=== PATIENT | female | born 1985 | race Caucasian/White ===

== ENCOUNTER 2016-10-18 09:56 | Observation (INO) | payer MEDICAID ==
[~2016-10-18] VITALS: Ht 162.6 cm; Wt 80.0 kg
[2016-10-18 12:20] LABS: HEMATOCRIT 37.7 % (34.6-47.8); HEMOGLOBIN 12.6 g/dL (11.7-16.4); WHITE BLOOD COUNT 9.5 x10^3/uL (3.4-10)
[2016-10-18 12:33] LABS: BLOOD UREA NITROGEN 11 mg/dL (7-18)
[2016-10-18 12:41] LABS: ACETAMINOPHEN < 2 mcg/mL (10-30)
[2016-10-18] MEDS ORDERED: ZIPRASIDONE 20MG CAPSULE ONE (13:19)
[2016-10-18] MEDS ORDERED: ZIPRASIDONE 20MG CAPSULE PO ONE (13:30)
[2016-10-18 14:02] LABS: DAU SCREEN DISCLAIMER
[2016-10-18 18:23] VITALS: BP 119/75
[2016-10-18] MEDS: ZIPRASIDONE 20MG CAPSULE PO SCH (18:31)
[2016-10-18 19:28] VITALS: BP 98/63
[2016-10-18] MEDS ORDERED: NICOTINE 14MG/24 HR PATCH.TD24 ONE (19:30)
[2016-10-18] MEDS: POTASSIUM CHLORIDE 20 MEQ TAB.ER.PRT PO SCH ×2 (20:29→22:34)
[2016-10-18] MEDS ORDERED: NICOTINE 14MG/24 HR PATCH.TD24 TD SCH (21:00)
[2016-10-19 06:20] VITALS: BP 110/61
[2016-10-19] MEDS: ZIPRASIDONE 20MG CAPSULE PO SCH ×2 (06:22→16:54)
[2016-10-19] MEDS: ACETAMINOPHEN 325 MG TABLET PO PRN ×2 (06:22→15:41)
[2016-10-19 06:31] LABS: BLOOD UREA NITROGEN 11 mg/dL (7-18)
[2016-10-19] MEDS ORDERED: POTASSIUM CHLORIDE 20 MEQ TAB.ER.PRT PO ONE (08:00)
[2016-10-19] MEDS ORDERED: NICOTINE 14MG/24 HR PATCH.TD24 TD SCH (09:00)
[2016-10-19 09:37] VITALS: BP 133/89
[2016-10-19] MEDS ORDERED: NICOTINE 14MG/24 HR PATCH.TD24 ONE (19:40)
[2016-10-19] MEDS: NICOTINE 14MG/24 HR PATCH.TD24 TD SCH (20:32)
[2016-10-19 20:38] VITALS: BP 115/70
[2016-10-20] MEDS: ACETAMINOPHEN 325 MG TABLET PO PRN ×3 (04:01→21:40)
[2016-10-20 07:45] VITALS: BP 131/83
[2016-10-20] MEDS: ZIPRASIDONE 20MG CAPSULE PO SCH ×2 (08:00→21:22)
[2016-10-20 21:20] VITALS: BP 124/75
[2016-10-20] MEDS: NICOTINE 14MG/24 HR PATCH.TD24 TD SCH (21:27)
[2016-10-21 07:20] VITALS: BP 134/78
[2016-10-21] MEDS: NICOTINE 14MG/24 HR PATCH.TD24 TD SCH (08:31)
[2016-10-21] MEDS: ACETAMINOPHEN 325 MG TABLET PO PRN ×2 (08:35→16:14)
[2016-10-21] MEDS ORDERED: ZIPRASIDONE 20MG CAPSULE PO SCH (09:00)
[2016-10-21] MEDS ORDERED: LORazepam 1MG TABLET ONE (13:58)
[2016-10-21] MEDS ORDERED: ZIPRASIDONE 40MG CAPSULE PO SCH (18:00)
[2016-10-21 20:15] VITALS: BP 114/63
[2016-10-21] MEDS: ORAJEL 7GM TUBE MM PRN (20:45)
[2016-10-22] MEDS ORDERED: ZIPRASIDONE 20MG CAPSULE PO SCH (08:00)
[2016-10-22] MEDS: ACETAMINOPHEN 325 MG TABLET PO PRN ×3 (08:40→17:20)
[2016-10-22 08:44] VITALS: BP 120/84
[2016-10-22] MEDS: NICOTINE 14MG/24 HR PATCH.TD24 TD SCH ×2 (09:00→16:29)
[2016-10-22] MEDS ORDERED: ARIPIPRAZOLE 5 MG TABLET PO ONE (12:30)
[2016-10-22 20:00] VITALS: BP 117/74
[2016-10-22] MEDS: IBUPROFEN 200 MG TABLET PO PRN (20:06)
[2016-10-22] MEDS: ORAJEL 7GM TUBE MM PRN (20:06)
[2016-10-23 07:37] VITALS: BP 108/72
[2016-10-23] MEDS: ARIPIPRAZOLE 10 MG TABLET PO SCH (08:36)
[2016-10-23] MEDS: ORAJEL 7GM TUBE MM PRN (08:42)
[2016-10-23] MEDS: ACETAMINOPHEN 325 MG TABLET PO PRN ×2 (08:42→16:48)
[2016-10-23] MEDS: IBUPROFEN 200 MG TABLET PO PRN ×2 (12:26→19:18)
[2016-10-23 19:16] VITALS: BP 124/84
[2016-10-24 07:21] VITALS: BP 117/76
[2016-10-24] MEDS: NICOTINE 14MG/24 HR PATCH.TD24 TD SCH (08:22)
[2016-10-24] MEDS: ARIPIPRAZOLE 10 MG TABLET PO SCH (08:22)
[2016-10-24] MEDS: ACETAMINOPHEN 325 MG TABLET PO PRN ×2 (08:30→19:37)
[2016-10-24] MEDS: IBUPROFEN 200 MG TABLET PO PRN (16:04)
[2016-10-24 19:14] VITALS: BP 117/78
[2016-10-25 07:37] VITALS: BP 118/78
[2016-10-25] MEDS: NICOTINE 14MG/24 HR PATCH.TD24 TD SCH (08:16)
[2016-10-25] MEDS ORDERED: ARIPIPRAZOLE 10 MG TABLET PO SCH (09:00)
== END 2016-10-25 09:41 ==
LOC: ED 10:31 → EDIP 13:30 → 3E 18:03
PROVIDERS: ADMIT Internal Medicine; ATTEND Internal Medicine
DX: F23 Brief psychotic disorder (principal); E87.6 Hypokalemia; F12.90 Cannabis use, unspecified, uncomplicated; F15.20 Other stimulant dependence, uncomplicated; F17.200 Nicotine dependence, unspecified, uncomplicated; F22 Delusional disorders; F32.9 Major depressive disorder, single episode, unspecified; G35 Multiple sclerosis; J45.909 Unspecified asthma, uncomplicated; F10.10 Alcohol abuse, uncomplicated; Z81.8 Family history of other mental and behavioral disorders; Z90.49 Acquired absence of other specified parts of digestive tract
CPT/HCPCS: 36415; 70450; 80048; 80307; 80329; 82040; 84443; 84703; 85025; 99285; G0378; Q0177; G0480

== ENCOUNTER 2017-02-16 13:48 | Observation (INO) | payer MEDICAID ==
[~2017-02-16] VITALS: Ht 160 cm; Wt 85.4 kg
[2017-02-16 15:23] LABS: HEMOGLOBIN 13.4 g/dL (11.7-16.4); WHITE BLOOD COUNT 7.2 x10^3/uL (3.4-10)
[2017-02-16 15:36] LABS: BLOOD UREA NITROGEN 6 mg/dL (7-18)
[2017-02-16 15:42] LABS: ASPARTATE AMINO TRANSFERASE 19 U/L (15-37)
[2017-02-16 15:46] LABS: ACETAMINOPHEN < 2 mcg/mL (10-30)
[2017-02-16 16:21] LABS: DAU SCREEN DISCLAIMER
[2017-02-16] MEDS ORDERED: LORazepam 1MG TABLET ONE (16:43)
[2017-02-16] MEDS ORDERED: LORazepam 1MG TABLET PO ONE (17:00)
[2017-02-16] MEDS ORDERED: POLYETHYLENE GLYCOL 17 GM PACKET PO PRN (18:30)
[2017-02-16] MEDS ORDERED: ONDANSETRON ODT 4 MG PO PRN (18:30)
[2017-02-16] MEDS ORDERED: BISACODYL 10 MG SUPP PR PRN (18:30)
[2017-02-16 19:50] VITALS: BP 133/84
[2017-02-16] MEDS: NICOTINE 7 MG/24 HR PATCH.TD24 TD SCH (20:07)
[2017-02-16] MEDS: ACETAMINOPHEN 325 MG TABLET PO PRN (20:07)
[2017-02-16] MEDS: DIPHENHYDRAMINE 50 MG CAPSULE PO PRN (20:07)
[2017-02-16] MEDS: ZIPRASIDONE 20MG CAPSULE PO SCH (20:07)
[2017-02-17 08:00] VITALS: BP 124/71
[2017-02-17] MEDS: ZIPRASIDONE 20MG CAPSULE PO SCH ×2 (08:14→21:06)
[2017-02-17] MEDS: SENNA/DOCUSATE TABLET PO SCH (08:16)
[2017-02-17] MEDS: LORazepam 1MG TABLET PO PRN (12:49)
[2017-02-17 19:53] VITALS: BP 97/61
[2017-02-17 21:02] VITALS: BP 114/70
[2017-02-17] MEDS: ACETAMINOPHEN 325 MG TABLET PO PRN (21:06)
[2017-02-17] MEDS: NICOTINE 7 MG/24 HR PATCH.TD24 TD SCH (21:07)
[2017-02-18 08:24] VITALS: BP 134/86
[2017-02-18] MEDS: ZIPRASIDONE 20MG CAPSULE PO SCH ×2 (08:33→20:21)
[2017-02-18] MEDS: LORazepam 1MG TABLET PO PRN ×2 (08:41→16:48)
[2017-02-18] MEDS: ACETAMINOPHEN 325 MG TABLET PO PRN ×2 (08:42→16:47)
[2017-02-18] MEDS: SENNA/DOCUSATE TABLET PO SCH (08:43)
[2017-02-18] MEDS: ENOXAPARIN 40 MG/0.4 ML SQ SCH (16:50)
[2017-02-18 19:30] VITALS: BP 157/86
[2017-02-18] MEDS: DIPHENHYDRAMINE 50 MG CAPSULE PO PRN (19:45)
[2017-02-18] MEDS: NICOTINE 7 MG/24 HR PATCH.TD24 TD SCH (20:24)
[2017-02-19 00:25] VITALS: BP 130/84
[2017-02-19] MEDS: ACETAMINOPHEN 325 MG TABLET PO PRN ×2 (00:27→12:31)
[2017-02-19] MEDS: LORazepam 1MG TABLET PO PRN ×3 (00:27→16:34)
[2017-02-19] MEDS: ZIPRASIDONE 20MG CAPSULE PO SCH ×2 (08:42→20:22)
[2017-02-19] MEDS: SENNA/DOCUSATE TABLET PO SCH (08:44)
[2017-02-19 08:45] VITALS: BP 126/79
[2017-02-19] MEDS: IBUPROFEN 200 MG TABLET PO PRN (16:34)
[2017-02-19] MEDS: DIPHENHYDRAMINE 50 MG CAPSULE PO PRN (16:34)
[2017-02-19] MEDS: ENOXAPARIN 40 MG/0.4 ML SQ SCH (16:37)
[2017-02-19 19:24] VITALS: BP 120/70
[2017-02-19] MEDS: NICOTINE 7 MG/24 HR PATCH.TD24 TD SCH (20:23)
[2017-02-20 08:00] VITALS: BP 127/78
[2017-02-20] MEDS: LORazepam 1MG TABLET PO PRN (08:20)
[2017-02-20] MEDS: ZIPRASIDONE 20MG CAPSULE PO SCH (08:20)
[2017-02-20] MEDS: IBUPROFEN 200 MG TABLET PO PRN (08:20)
[2017-02-20] MEDS: SENNA/DOCUSATE TABLET PO SCH (08:21)
== END 2017-02-20 13:20 | disposition home or self-care (01) ==
LOC: ED 17:16 → EDIP 18:32 → 3E 19:35
PROVIDERS: ADMIT Family Medicine; ATTEND Family Medicine
DX: F23 Brief psychotic disorder (principal); F20.9 Schizophrenia, unspecified; J45.909 Unspecified asthma, uncomplicated; F12.90 Cannabis use, unspecified, uncomplicated; F15.90 Other stimulant use, unspecified, uncomplicated; F17.200 Nicotine dependence, unspecified, uncomplicated; M79.671 Pain in right foot; Z90.01 Acquired absence of eye
CPT/HCPCS: 36415; 73630; 80053; 80307; 80329; 84703; 85025; 99285; G0378; G0479; G0480

== ENCOUNTER 2017-10-05 23:12 | Observation (INO) | payer MEDICAID, OTHER ==
[~2017-10-05] VITALS: Ht 170.2 cm; Wt 105.0 kg
[~2017-10-05 23:12] MED LIST: ARIP10TA33 PO
[2017-10-05] MEDS ORDERED: ZIPRASIDONE 20MG CAPSULE ONE (23:43)
[2017-10-05] MEDS: ZIPRASIDONE 20MG CAPSULE PO SCH (23:46)
[2017-10-05 23:54] LABS: BASOPHILS # (AUTO) 0.03 x10^3/uL (0-0.1); BASOPHILS % (AUTO) 0 % (0-1); EOSINOPHILS # (AUTO) 0.06 x10^3/uL (0-0.4); EOSINOPHILS % (AUTO) 1 % (1-7); LYMPHOCYTES % (AUTO) 23 % (22-44); MD NO; MEAN CORPUSCULAR HEMOGLOBIN 31.9 pg (27.0-34.8); MEAN CORPUSCULAR HGB CONC 34.2 g/dL (32.4-35.8); MEAN CORPUSCULAR VOLUME 93.3 fL (80-100); MEAN PLATELET VOLUME 8.2 fL (7.4-10.4); MONOCYTES # (AUTO) 0.43 x10^3/uL (0.2-0.8); MONOCYTES % (AUTO) 4 % (2-9); NEUTROPHILS # (AUTO) 7.69 x10^3/uL (1.8-6.8); NEUTROPHILS % (AUTO) 72 % (42-75); PLATELET COUNT 361 x10^3/uL (130-400); RED BLOOD COUNT 4.05 x10^6/uL (3.82-5.3); RED CELL DISTRIBUTION WIDTH 13.7 % (9.6-15.2)
[2017-10-06 00:02] LABS: AMPHETAMINE SCREEN, URINE Positive (Negative); BARBITURATE SCREEN, URINE Negative (Negative); BENZODIAZEPINE SCREEN, URINE Positive (Negative); CANNABINOID SCREEN, URINE Negative (Negative); COCAINE SCREEN, URINE Negative (Negative); METHADONE SCREEN, URINE Negative (Negative); OPIATE SCREEN, URINE Negative (Negative)
[2017-10-06 00:06] LABS: ALBUMIN 3.7 g/dL (3.4-5.0); ANION GAP 8 mmol/L (5-15); CALCIUM 8.6 mg/dL (8.5-10.1); CHLORIDE 111 mmol/L (98-107); CREATININE 0.67 mg/dL (0.55-1.02)
[2017-10-06 00:07] LABS: SALICYLATE LEVEL < 1.7 mg/dL (2.8-20.0)
[2017-10-06 00:11] LABS: ACETAMINOPHEN < 2 mcg/mL (10-30)
[2017-10-06] MEDS ORDERED: ONDANSETRON ODT 4 MG PO PRN (04:00)
[2017-10-06] MEDS ORDERED: TRAZ50TA18 PO (04:11)
[2017-10-06 04:27] VITALS: BP 114/62
[2017-10-06 08:17] VITALS: BP 118/66
[2017-10-06] MEDS: PALIPERIDONE 3 MG TAB.ER.24 PO SCH (14:10)
[2017-10-06] MEDS: LORazepam 1MG TABLET PO PRN ×3 (14:10→22:05)
[2017-10-06] MEDS: ACETAMINOPHEN 325 MG TABLET PO PRN ×2 (16:50→22:04)
[2017-10-06 19:36] VITALS: BP 103/66
[2017-10-07 07:55] VITALS: BP 121/85
[2017-10-07] MEDS: PALIPERIDONE 3 MG TAB.ER.24 PO SCH (08:59)
[2017-10-07] MEDS: ACETAMINOPHEN 325 MG TABLET PO PRN (09:09)
[2017-10-07] MEDS: LORazepam 1MG TABLET PO PRN (11:42)
[2017-10-07] MEDS: NICOTINE 7 MG/24 HR PATCH.TD24 TD SCH (16:09)
[2017-10-07] MEDS: ZIPRASIDONE 20MG CAPSULE PO SCH (17:18)
[2017-10-07 19:23] VITALS: BP 123/81
[2017-10-08 09:21] VITALS: BP 135/85
[2017-10-08] MEDS: PALIPERIDONE 3 MG TAB.ER.24 PO SCH (09:27)
[2017-10-08] MEDS: ACETAMINOPHEN 325 MG TABLET PO PRN (13:23)
[2017-10-08] MEDS: LORazepam 1MG TABLET PO PRN (13:23)
[2017-10-08] MEDS ORDERED: LORATADINE 10 MG TABLET PO PRN (13:30)
[2017-10-08] MEDS ORDERED: SODIUM CHLORIDE NASAL SPRAY 45ML BOTTLE NAS PRN (13:30)
[2017-10-08] MEDS: NICOTINE 7 MG/24 HR PATCH.TD24 TD SCH (15:23)
[2017-10-08 20:04] VITALS: BP 134/87
[2017-10-09] MEDS: PALIPERIDONE 3 MG TAB.ER.24 PO SCH (08:38)
[2017-10-09 08:40] VITALS: BP_SYST 117; BP_SYST 137; BP_DIAS 102; BP_DIAS 76
[2017-10-09] MEDS: LORazepam 1MG TABLET PO PRN ×2 (09:38→14:41)
[2017-10-10] MEDS ORDERED: PALIPERIDONE 3 MG TAB.ER.24 PO SCH (09:00)
== END 2017-10-09 14:46 ==
LOC: ED 23:17 → MERGE 10-06 01:21 → EDIP 10-06 01:21 → 2N 10-06 04:18
PROVIDERS: ADMIT Hospitalist; ATTEND Hospitalist
DX: F23 Brief psychotic disorder (principal); F14.159 Cocaine abuse with cocaine-induced psychotic disorder, unspecified; F15.159 Other stimulant abuse with stimulant-induced psychotic disorder, unspecified; F20.9 Schizophrenia, unspecified; F32.9 Major depressive disorder, single episode, unspecified; E86.0 Dehydration; F41.9 Anxiety disorder, unspecified
CPT/HCPCS: 36415; 80048; 80307; 80329; 82040; 84703; 85025; 99285; G0378; G0480

== ENCOUNTER 2018-01-10 05:52 | Emergency (ER) | payer MEDICAID, OTHER ==
[~2018-01-10] VITALS: Ht 160 cm; Wt 88.0 kg
[~2018-01-10 05:52] MED LIST changes: +TRAZ-136 PO
[2018-01-10 05:55] VITALS: BP 104/66
== END 2018-01-10 06:31 | disposition home or self-care (01) ==
LOC: ED 06:25
DX: F19.94 Other psychoactive substance use, unspecified with psychoactive substance-induced mood disorder (principal); F15.10 Other stimulant abuse, uncomplicated; F29 Unspecified psychosis not due to a substance or known physiological condition; F17.200 Nicotine dependence, unspecified, uncomplicated; Z59.0 Homelessness
CPT/HCPCS: 99283

== ENCOUNTER 2018-10-15 09:59 | Emergency (ER) | payer MEDICAID ==
[~2018-10-15] VITALS: Ht 160 cm; Wt 83.0 kg
[~2018-10-15 09:59] MED LIST changes: -TRAZ-136 PO; +TRAZ50TA66 PO
[2018-10-15] MEDS ORDERED: ZIPRASIDONE 20 MG INJ IM ONE ×2 (10:24→10:30)
[2018-10-15] MEDS ORDERED: LORazepam 2 MG/ML, 1ML IM ONE (10:30)
[2018-10-15 10:34] LABS: BASOPHILS # (AUTO) 0.07 x10^3/uL (0-0.1); BASOPHILS % (AUTO) 1 % (0-1); EOSINOPHILS # (AUTO) 0.15 x10^3/uL (0-0.4); EOSINOPHILS % (AUTO) 1 % (1-7); LYMPHOCYTES # (AUTO) 2.83 x10^3/uL (1-3.4); LYMPHOCYTES % (AUTO) 23 % (22-44); MD NO; MEAN CORPUSCULAR HEMOGLOBIN 30.5 pg (27.0-34.8); MEAN CORPUSCULAR HGB CONC 33.3 g/dL (32.4-35.8); MEAN CORPUSCULAR VOLUME 91.6 fL (80-100); MEAN PLATELET VOLUME 7.6 fL (7.4-10.4); MONOCYTES # (AUTO) 0.55 x10^3/uL (0.2-0.8); MONOCYTES % (AUTO) 5 % (2-9); NEUTROPHILS # (AUTO) 8.76 x10^3/uL (1.8-6.8); NEUTROPHILS % (AUTO) 71 % (42-75); PLATELET COUNT 418 x10^3/uL (130-400); RED BLOOD COUNT 4.15 x10^6/uL (3.82-5.3); RED CELL DISTRIBUTION WIDTH 13.6 % (9.6-15.2)
[2018-10-15 10:45] LABS: ALANINE AMINOTRANSFERASE 38 U/L (12-78); ALBUMIN 3.8 g/dL (3.4-5.0); ANION GAP 7 mmol/L (5-15); CALCIUM 8.7 mg/dL (8.5-10.1); CHLORIDE 108 mmol/L (98-107); SALICYLATE LEVEL 1.9 mg/dL (2.8-20.0)
--- NOTE | 2018-10-15 10:49 | NUR ---
LATE ENTRY DUE TO PATIENT CARE: FIRST CONTACT WITH PATIENT: PATIENT STATING "THEY ARE TRYING TO GET ME" PATIENT REPORTS SI WITH NO PLAN. PATIENT HAS PAST ATTEMPT TRYING TO CUT WRISTS PER PATIENT. PATIENT AMB WITH STEADY GAIT TO BATHROOM, UA COLLECTED AND SENT TO LAB. PATIENT ANXIOUS, AMBULATING UP ER HALLWAY TO NURSES DESK AND IN OTHER PATIENT'S ROOMS, ATTEMPTED MULTIPLE TIME TO REDIRECT PATIENT BACK TO ROOM WITH NO SUCCESS. GEODON ORDERED BY ERP AND ADMINISTERED PER MAY. SECURITY CALLED, 2 POINT RESTRAINTS APPLIED (RT HAND, LT FOOT) AT 1032, CMS INTACT. PATIENT PROVIDED WATER PER REQUEST. PATIENT NOW RESTING QUIETLY IN [facility]. NADN. AWAITING FURTHER ORDERS.
[2018-10-15 10:51] LABS: ALKALINE PHOSPHATASE 109 U/L (45-117); BILIRUBIN,TOTAL 0.3 mg/dL (0.2-1.0); CREATININE 0.63 mg/dL (0.55-1.02); TOTAL PROTEIN 8.2 g/dL (6.4-8.2)
--- NOTE | 2018-10-15 10:52 | NUR ---
ALL PERSONAL ITEMS PLACED IN 1 BAG AND IN LOCKED STORAGE, ALL SAFETY MEASURES IN PLACE, SITTER REQUESTED.
[2018-10-15 11:00] LABS: MICROSCOPIC AUTO
[2018-10-15 11:02] LABS: CULTURE INDICATED? YES
[2018-10-15 11:08] LABS: AMPHETAMINE SCREEN, URINE Positive (Negative); BARBITURATE SCREEN, URINE Negative (Negative); BENZODIAZEPINE SCREEN, URINE Negative (Negative); CANNABINOID SCREEN, URINE Negative (Negative); COCAINE SCREEN, URINE Negative (Negative); METHADONE SCREEN, URINE Negative (Negative); OPIATE SCREEN, URINE Negative (Negative)
--- NOTE | 2018-10-15 11:08 | NUR ---
PATIENT RESTING IN GURNEY, CALM/COOPERATIVE. PATIENT REQUESTING TO SLEEP, RESTRAINTS REMOVED, WARM BLANKET PROVIDED, PATIENT REMAINS COOPERATIVE AT THIS TIME. NO ADDITIONAL NEEDS. RESP EVEN/UNLABORED.
--- NOTE | 2018-10-15 11:39 | NUR ---
SITTER AT BEDSIDE WITH PATIENT IN SIGHT. PATIENT SLEEPING IN GURNEY, VISIBLE CHEST RISE AND FALL. MARCIA.
[2018-10-15] MEDS ORDERED: CEFDINIR 300 MG CAPSULE PO ONE (12:00)
--- NOTE | 2018-10-15 12:41 | NUR ---
PATIENT SLEEPING IN [place], NADN. RESP EVEN/UNLABORED. SITTER AT DOORWAY WITH PATIENT IN SIGHT, AWAITING PSYCH DR TO SPEAK WITH PATIENT PER ERP.
[2018-10-15] MEDS ORDERED: LORazepam 1MG TABLET ONE (13:17)
[2018-10-15] MEDS ORDERED: CEFDINIR 300 MG CAPSULE ONE (13:17)
--- NOTE | 2018-10-15 13:23 | NUR ---
MEDICATIONS ADMINISTERED PER ERP. PATIENT REQUESTING FOOD, ED DIET TRAY ORDERED, NADN. RESP EVEN/UNLABORED. PATIENT CALM/COOPERATIVE AT THIS TIME. SITTER AT DOORWAY WITH PATIENT IN SIGHT.
[2018-10-15] MEDS ORDERED: LORazepam 1MG TABLET PO ONE (13:30)
--- NOTE | 2018-10-15 13:54 | NUR ---
ED TRAY PROVIDED TO PATIENT, ALL SAFETY MEASURES IN PLACE. SITTER AT DOORWAY.
--- NOTE | 2018-10-15 14:12 | NUR ---
REPORT TO ANAMARIA IN 3E.
--- NOTE | 2018-10-15 14:18 | NUR ---
3E HERE TO TRANSFER PATIENT UPSTAIRS VIA WHEELCHAIR, MARCIA.
[2018-10-15 14:19] VITALS: BP 104/68
[2018-10-21] MEDS ORDERED: ACAM333T7 PO (16:23)
[2018-10-21] MEDS ORDERED: TRAZ50TA66 PO (16:23)
[2018-10-21] MEDS ORDERED: OLAN5TAB9 PO (16:23)
== END 2018-10-15 14:20 | disposition home or self-care (01) ==
LOC: ED 12:05
DX: F15.951 Other stimulant use, unspecified with stimulant-induced psychotic disorder with hallucinations (principal); F22 Delusional disorders; F41.9 Anxiety disorder, unspecified; N30.90 Cystitis, unspecified without hematuria; F29 Unspecified psychosis not due to a substance or known physiological condition; F17.200 Nicotine dependence, unspecified, uncomplicated
CPT/HCPCS: 36415; 80053; 80307; 81001; 84443; 84703; 85025; 87086; 96372; 99284; J3486; 99283

== ENCOUNTER 2018-10-15 13:46 | Inpatient (IN) | payer MEDICAID ==
[~2018-10-15] VITALS: Ht 160 cm; Wt 84.7 kg
[2018-10-22 07:38] VITALS: BP 103/70
== END 2018-10-22 10:00 | disposition home or self-care (01) | DRG 751 ==
LOC: 3E 14:39
PROVIDERS: ADMIT Psychiatry & Neurology Psychosomatic Medicine; ATTEND Psychiatry & Neurology Psychosomatic Medicine
DX: F29 Unspecified psychosis not due to a substance or known physiological condition (principal); F20.9 Schizophrenia, unspecified; F10.10 Alcohol abuse, uncomplicated; F12.20 Cannabis dependence, uncomplicated; F15.90 Other stimulant use, unspecified, uncomplicated; F41.9 Anxiety disorder, unspecified; N39.0 Urinary tract infection, site not specified; F17.200 Nicotine dependence, unspecified, uncomplicated; G47.00 Insomnia, unspecified; Z79.899 Other long term (current) drug therapy; Z82.5 Family history of asthma and other chronic lower respiratory diseases; Z82.49 Family history of ischemic heart disease and other diseases of the circulatory system
CPT/HCPCS: 36415; 71045; 80053; 80061; 80307; 81001; 82140; 82607; 84439; 84443; 84703; 85025; 85651; 86592; 87086; 93005; 96372; 99283; 99284; J3486

== ENCOUNTER 2019-04-14 16:11 | Inpatient (IN) | payer MEDICAID ==
[~2019-04-14] VITALS: Ht 160 cm; Wt 84.6 kg
[~2019-04-14 16:11] MED LIST changes: +ACAM333T7 PO; +OLAN5TAB9 PO
[2019-04-14 17:55] VITALS: BP 125/81
[2019-04-14] MEDS ORDERED: ONDANSETRON ODT 4 MG PO PRN (18:30)
[2019-04-14] MEDS ORDERED: BISACODYL 10 MG SUPP PR PRN (18:30)
[2019-04-14] MEDS ORDERED: DOCUSATE 100 MG CAPSULE PO PRN (18:30)
[2019-04-14] MEDS ORDERED: POLYETHYLENE GLYCOL 17 GM PACKET PO PRN (18:30)
[2019-04-14 19:00] VITALS: BP 125/81
[2019-04-14 19:30] VITALS: BP 125/81
[2019-04-14] MEDS ORDERED: OLANZAPINE 5 MG TABLET ONE (21:11)
[2019-04-14] MEDS: OLANZAPINE 5 MG TABLET PO SCH (21:12)
[2019-04-15 06:25] LABS: FREE T4 (FREE THYROXINE) 1.11 ng/dL (0.76-1.46)
[2019-04-15 07:05] VITALS: BP 131/84
[2019-04-15] MEDS: ACAMPROSATE 333 MG TABLET.DR PO SCH ×3 (09:26→20:40)
[2019-04-15 14:31] LABS: MICROSCOPIC AUTO
[2019-04-15 14:40] LABS: CULTURE INDICATED? YES
[2019-04-15] MEDS: HYDROXYZINE PAMOATE 50MG CAP PO PRN (17:00)
[2019-04-15 19:23] VITALS: BP 112/73
[2019-04-15] MEDS: TRAZODONE 50MG TABLET PO SCH (20:39)
[2019-04-15] MEDS: OLANZAPINE 5 MG TABLET PO SCH (20:44)
[2019-04-16 07:00] VITALS: BP 109/73
[2019-04-16] MEDS: HYDROXYZINE PAMOATE 50MG CAP PO PRN ×2 (08:02→17:17)
[2019-04-16] MEDS: ACAMPROSATE 333 MG TABLET.DR PO SCH ×3 (08:02→20:57)
[2019-04-16] MEDS: ACETAMINOPHEN 325 MG TABLET PO PRN (17:17)
[2019-04-16 19:44] VITALS: BP 111/71
[2019-04-16] MEDS: TRAZODONE 50MG TABLET PO SCH (20:57)
[2019-04-16] MEDS: OLANZAPINE 5 MG TABLET PO SCH (20:57)
[2019-04-17 06:59] VITALS: BP 96/62
[2019-04-17] MEDS: ACAMPROSATE 333 MG TABLET.DR PO SCH ×3 (08:34→20:35)
[2019-04-17] MEDS: ACETAMINOPHEN 325 MG TABLET PO PRN (12:46)
[2019-04-17] MEDS: NICOTINE 14MG/24 HR PATCH.TD24 TD SCH (16:50)
[2019-04-17] MEDS: HYDROXYZINE PAMOATE 50MG CAP PO PRN (18:25)
[2019-04-17 19:23] VITALS: BP 125/77
[2019-04-17] MEDS: TRAZODONE 50MG TABLET PO SCH (20:35)
[2019-04-17] MEDS: OLANZAPINE 5 MG TABLET PO SCH (20:38)
[2019-04-18 07:39] VITALS: BP 103/66
[2019-04-18] MEDS: ACETAMINOPHEN 325 MG TABLET PO PRN (08:29)
[2019-04-18] MEDS: ACAMPROSATE 333 MG TABLET.DR PO SCH ×3 (08:29→21:12)
[2019-04-18] MEDS: HYDROXYZINE PAMOATE 50MG CAP PO PRN (10:22)
[2019-04-18] MEDS: NICOTINE 14MG/24 HR PATCH.TD24 TD SCH (17:04)
[2019-04-18 19:44] VITALS: BP 115/80
[2019-04-18] MEDS: OLANZAPINE 5 MG TABLET PO SCH (21:12)
[2019-04-18] MEDS: TRAZODONE 50MG TABLET PO SCH (21:12)
[2019-04-19 07:16] VITALS: BP 97/65
[2019-04-19 07:26] VITALS: BP 87/48
[2019-04-19] MEDS: ACAMPROSATE 333 MG TABLET.DR PO SCH ×3 (08:09→20:50)
[2019-04-19] MEDS: HYDROXYZINE PAMOATE 50MG CAP PO PRN (11:00)
[2019-04-19] MEDS: ACETAMINOPHEN 325 MG TABLET PO PRN (16:36)
[2019-04-19] MEDS: NICOTINE 14MG/24 HR PATCH.TD24 TD SCH (17:00)
[2019-04-19 19:15] VITALS: BP 116/74
[2019-04-19] MEDS: TRAZODONE 50MG TABLET PO SCH (20:50)
[2019-04-19] MEDS: OLANZAPINE 5 MG TABLET PO SCH (20:50)
[2019-04-20 07:37] VITALS: BP 94/52
[2019-04-20] MEDS: ACETAMINOPHEN 325 MG TABLET PO PRN (08:23)
[2019-04-20] MEDS: ACAMPROSATE 333 MG TABLET.DR PO SCH (08:24)
== END 2019-04-20 13:07 | disposition home or self-care (01) | DRG 750 ==
LOC: 3E 17:48
PROVIDERS: ADMIT Psychiatry & Neurology Psychosomatic Medicine; ATTEND Psychiatry & Neurology Psychosomatic Medicine
DX: F20.9 Schizophrenia, unspecified (principal); F15.259 Other stimulant dependence with stimulant-induced psychotic disorder, unspecified; F17.200 Nicotine dependence, unspecified, uncomplicated; F31.9 Bipolar disorder, unspecified; F41.9 Anxiety disorder, unspecified; G47.00 Insomnia, unspecified; Z79.899 Other long term (current) drug therapy; Z81.8 Family history of other mental and behavioral disorders; Z91.83 Wandering in diseases classified elsewhere; F12.259 Cannabis dependence with psychotic disorder, unspecified; F11.159 Opioid abuse with opioid-induced psychotic disorder, unspecified
CPT/HCPCS: 36415; 81001; 84439; 84443; 87086; 93005